=== PATIENT | male | born 1995 | race Caucasian/White ===

== ENCOUNTER 2017-08-06 19:12 | Emergency (ER) | payer MEDICAID ==
[~2017-08-06] VITALS: Ht 180.3 cm; Wt 68.5 kg
[~2017-08-06 19:12] MED LIST: DIPH-423 PO; GUAI600T45 PO; INSU100C4 SQ; LANTUS SQ; POLOS OP; VIG0.5OS OP
[2017-08-06] MEDS ORDERED: IBUP-1984 PO (20:04)
[2017-08-06 20:54] LABS: BASOPHILS % (AUTO) 0.3 % (0-1); EOSINOPHILS # (AUTO) 0.1 X10'3 (0-0.9); EOSINOPHILS % (AUTO) 1.9 % (0-6); HEMATOCRIT 46.1 % (42.0-52.0); HEMOGLOBIN 15.8 g/dl (14.0-17.9); LYMPHOCYTES # (AUTO) 1.8 X10'3 (1.1-4.8); LYMPHOCYTES % (AUTO) 30.8 % (21-51); MEAN CORPUSCULAR HEMOGLOBIN 30.8 PG (27.0-31.0); MEAN CORPUSCULAR HGB CONC 34.2 % (33.0-36.5); MEAN PLATELET VOLUME 10.1 FL (7.4-10.4); MONOCYTES # (AUTO) 0.4 X10'3 (0-0.9); MONOCYTES % (AUTO) 6.5 % (2-12); NEUTROPHILS # (AUTO) 3.5 X10'3 (1.8-7.7); NEUTROPHILS % (AUTO) 60.5 % (42-75); PLATELET COUNT 201 X10'3 (140-440); RED BLOOD COUNT 5.12 X10'6 (4.70-6.10); WHITE BLOOD COUNT 5.9 X10'3 (4.5-11.0)
[2017-08-06 21:03] LABS: ALANINE AMINOTRANSFERASE 40 U/L (12-78); ALBUMIN 4.7 G/DL (3.4-5.0); ALBUMIN/GLOBULIN RATIO 1.5 (1.1-1.5); ALKALINE PHOSPHATASE 421 IU/L (20-180); ANION GAP 10 (8-16); ASPARTATE AMINO TRANSFERASE 23 U/L (10-37); BILIRUBIN,TOTAL 0.8 MG/DL (0.1-1.0); BLOOD UREA NITROGEN 17 MG/DL (7-18); BUN/CREATININE RATIO 12.2 (5.4-32.0); CALCIUM 9.4 MG/DL (8.5-10.1); CHLORIDE 88 MMOL/L (99-107); CREATININE 1.39 MG/DL (0.60-1.10); POTASSIUM 4.6 MMOL/L (3.5-5.1); SODIUM 127 MMOL/L (135-145); TOTAL CARBON DIOXIDE 28.7 MMOL/L (24-32); TOTAL PROTEIN 7.9 G/DL (6.4-8.2); eGFR 66 ML/MIN
[2017-08-06 21:22] LABS: GLUCOSE 832 MG/DL (70-104)
[2017-08-06] MEDS ORDERED: insulin regular, human 10 units/0.1 ml syringe SQ ONE ×2 (21:30→22:25)
[2017-08-06] MEDS ORDERED: normal saline 1000ml 1,000 ML IV ONE ×3 (21:30→23:45)
[2017-08-06] MEDS ORDERED: morphine 4 MG/ML inj SYRINge IV ONE (21:55)
[2017-08-06 22:01] LABS: CLARITY,URINE CLEAR (Clear); COLOR,URINE STRAW (Yellow); GLUCOSE, URINE >=1000 mg/dl (Neg); KETONES,URINE NEGATIVE (Neg); LEUKOCYTE ESTERASE ,URINE NEGATIVE (Neg); NITRITES, URINE NEGATIVE (Neg); OCCULT BLOOD,URINE NEGATIVE (Neg); PROTEIN,URINE NEGATIVE (Neg); UROBILINOGEN,URINE 0.2 E.U/dL (0.2-1.0)
[2017-08-06 22:03] LABS: UA COLLECTION TYPE CLN CATCH MIDSTREAM
[2017-08-06 22:09] LABS: BACTERIA,URINE NONE SEEN /HPF (Neg); MUCUS STRANDS NONE SEEN /LPF (Neg); RBC,URINE NONE SEEN /HPF (0-2); SQUAMOUS EPITHELIAL CELL,UR FEW /LPF (FEW); WBC,URINE NONE SEEN /HPF (0-4)
[2017-08-06] MEDS ORDERED: HYDR-569 PO (23:43)
[2017-08-07 00:50] VITALS: BP 129/77
== END 2017-08-07 00:52 | disposition home or self-care (01) ==
LOC: ER 19:12
DX: S39.012A Strain of muscle, fascia and tendon of lower back, initial encounter (principal); E10.65 Type 1 diabetes mellitus with hyperglycemia; N17.9 Acute kidney failure, unspecified; M54.5 Low back pain; E87.0 Hyperosmolality and hypernatremia; Z88.0 Allergy status to penicillin; W18.39XA Other fall on same level, initial encounter; Y93.89 Activity, other specified; Y92.331 Roller skating rink as the place of occurrence of the external cause; Y99.8 Other external cause status
CPT/HCPCS: 36415; 71100; 72070; 72100; 80053; 81001; 82948; 85025; 96361; 96372; 96374; 99285; J1815; J2270; J7030

== ENCOUNTER 2017-08-14 22:21 | Emergency (ER) | payer MEDICAID ==
[~2017-08-14] VITALS: Ht 180.3 cm; Wt 68.0 kg
[~2017-08-14 22:21] MED LIST changes: -GUAI600T45 PO; +HYDR-569 PO; +IBUP-1984 PO; -POLOS OP; -VIG0.5OS OP
[2017-08-14 22:45] LABS: BASOPHILS % (AUTO) 0.4 % (0-1); EOSINOPHILS # (AUTO) 0.1 X10'3 (0-0.9); EOSINOPHILS % (AUTO) 1.9 % (0-6); HEMATOCRIT 42.6 % (42.0-52.0); HEMOGLOBIN 14.7 g/dl (14.0-17.9); LYMPHOCYTES # (AUTO) 3.1 X10'3 (1.1-4.8); MEAN CORPUSCULAR HEMOGLOBIN 30.6 PG (27.0-31.0); MEAN CORPUSCULAR HGB CONC 34.6 % (33.0-36.5); MEAN CORPUSCULAR VOLUME 88.7 FL (78-98); MONOCYTES # (AUTO) 0.6 X10'3 (0-0.9); MONOCYTES % (AUTO) 8.2 % (2-12); NEUTROPHILS # (AUTO) 3.7 X10'3 (1.8-7.7); NEUTROPHILS % (AUTO) 48.5 % (42-75); PLATELET COUNT 229 X10'3 (140-440); RED CELL DISTRIBUTION WIDTH 13.2 % (11.5-14.5); WHITE BLOOD COUNT 7.6 X10'3 (4.5-11.0)
[2017-08-14] MEDS ORDERED: acetaminophen 325mg tablet PO ONE (23:05)
[2017-08-14] MEDS ORDERED: ketorolac tromethamine 15mg/ml inj. IV ONE (23:05)
[2017-08-14] MEDS ORDERED: normal saline 1000ML IV soln IVB ONE (23:05)
[2017-08-14] MEDS ORDERED: INSU100I31 (23:07)
[2017-08-14] MEDS ORDERED: INSU100I31 SUBCUT (23:07)
[2017-08-14 23:10] LABS: ALANINE AMINOTRANSFERASE 38 U/L (12-78); ALBUMIN 4.2 G/DL (3.4-5.0); ALBUMIN/GLOBULIN RATIO 1.3 (1.1-1.5); ALKALINE PHOSPHATASE 308 IU/L (20-180); ANION GAP 16 (8-16); ASPARTATE AMINO TRANSFERASE 23 U/L (10-37); BILIRUBIN,TOTAL 0.4 MG/DL (0.1-1.0); BLOOD UREA NITROGEN 17 MG/DL (7-18); BUN/CREATININE RATIO 10.9 (5.4-32.0); CALCIUM 9.3 MG/DL (8.5-10.1); CHLORIDE 96 MMOL/L (99-107); CKMB RELATIVE INDEX 0.4 RATIO (0-2.5); CREATINE KINASE 300 U/L (39-308); CREATININE 1.56 MG/DL (0.60-1.10); GLUCOSE 391 MG/DL (70-104); POTASSIUM 3.4 MMOL/L (3.5-5.1); SODIUM 136 MMOL/L (135-145); TOTAL CARBON DIOXIDE 24.1 MMOL/L (24-32); TOTAL PROTEIN 7.4 G/DL (6.4-8.2); eGFR 58 ML/MIN
[2017-08-15 00:30] VITALS: BP 139/94
== END 2017-08-15 00:31 | disposition home or self-care (01) ==
LOC: ER 22:22
DX: E10.65 Type 1 diabetes mellitus with hyperglycemia (principal); R25.2 Cramp and spasm; Z79.4 Long term (current) use of insulin; Z88.0 Allergy status to penicillin; Z88.8 Allergy status to other drugs, medicaments and biological substances; Z79.899 Other long term (current) drug therapy
CPT/HCPCS: 36415; 80053; 82550; 82553; 82948; 85025; 96360; 99284; J7030

== ENCOUNTER 2019-07-18 18:58 | Emergency (ER) | payer MEDICAID ==
[~2019-07-18] VITALS: Ht 180.3 cm; Wt 160.0 kg
[~2019-07-18 18:58] MED LIST changes: +HYDR-4383 PO; -HYDR-569 PO; +INSU100I31; +INSU100I31 SUBCUT; -LANTUS SQ
[2019-07-18] MEDS ORDERED: morphine 4 MG/ML inj SYRINge IV PRN (19:10)
[2019-07-18] MEDS ORDERED: ondansetron/PF 4mg/2ml inj IV ONE (19:10)
[2019-07-18] MEDS ORDERED: normal saline 1000ML IV soln IVB ONE (19:10)
[2019-07-18 19:33] LABS: BASOPHILS % (AUTO) 0.1 % (0-1); EOSINOPHILS % (AUTO) 0.4 % (0-6); HEMATOCRIT 50.6 % (42.0-52.0); HEMOGLOBIN 17.8 g/dl (14.0-17.9); LYMPHOCYTES # (AUTO) 0.3 X10'3 (1.1-4.8); LYMPHOCYTES % (AUTO) 4.5 % (21-51); MEAN CORPUSCULAR HEMOGLOBIN 30.4 PG (27.0-31.0); MEAN CORPUSCULAR HGB CONC 35.1 g/dL (33.0-36.5); MEAN CORPUSCULAR VOLUME 86.5 FL (78-98); MEAN PLATELET VOLUME 8.9 FL (7.4-10.4); MONOCYTES # (AUTO) 0.4 X10'3 (0-0.9); MONOCYTES % (AUTO) 5.4 % (2-12); NEUTROPHILS # (AUTO) 6.9 X10'3 (1.8-7.7); NEUTROPHILS % (AUTO) 89.6 % (42-75); PLATELET COUNT 232 X10'3 (140-440); RED BLOOD COUNT 5.85 X10'6 (4.70-6.10); RED CELL DISTRIBUTION WIDTH 13.8 % (11.5-14.5); WHITE BLOOD COUNT 7.7 X10'3 (4.5-11.0)
[2019-07-18 19:43] LABS: ALANINE AMINOTRANSFERASE 28 U/L (12-78); ALBUMIN 4.4 G/DL (3.4-5.0); ALBUMIN/GLOBULIN RATIO 1.3 (1.1-1.5); ALKALINE PHOSPHATASE 177 IU/L (46-116); ANION GAP 10 (8-16); ASPARTATE AMINO TRANSFERASE 20 U/L (10-37); BLOOD UREA NITROGEN 20 MG/DL (7-18); BUN/CREATININE RATIO 16.8 (5.4-32.0); CHLORIDE 99 MMOL/L (99-107); CREATININE 1.19 MG/DL (0.60-1.10); GLUCOSE 363 MG/DL (70-104); LIPASE < 50 U/L (73-393); MAGNESIUM 1.2 MG/DL (1.5-2.4); POTASSIUM 4.6 MMOL/L (3.5-5.1); SODIUM 138 MMOL/L (135-145); TOTAL CARBON DIOXIDE 29.4 MMOL/L (24-32); TOTAL PROTEIN 7.8 G/DL (6.4-8.2); eGFR 77 ML/MIN
[2019-07-18] MEDS ORDERED: magnesium 2GM in 50ml NS 50 ML IV ONE (19:55)
[2019-07-18] MEDS ORDERED: insulin regular, human 10 units/0.1 ml syringe IV ONE (20:10)
[2019-07-18] MEDS ORDERED: ONDA4TAB6 PO (20:30)
[2019-07-18] MEDS ORDERED: insulin regular, human U-100 3ml vial - multi-dose IV ONE (20:50)
--- NOTE | 2019-07-18 22:35 | NUR ---
DR DIANE AWARE OF BLOOD SUGAR 262 POST TREATMENT, OK TO DC HOME, PT AMB WITH STEADY GAIT TO [facility]
[2019-07-18 22:38] VITALS: BP 125/69
== END 2019-07-18 22:39 | disposition home or self-care (01) ==
LOC: ER 18:58
DX: R10.11 Right upper quadrant pain (principal); R10.13 Epigastric pain; R11.2 Nausea with vomiting, unspecified; E10.9 Type 1 diabetes mellitus without complications; Z88.0 Allergy status to penicillin; Z88.8 Allergy status to other drugs, medicaments and biological substances; Z79.4 Long term (current) use of insulin; Z79.899 Other long term (current) drug therapy
CPT/HCPCS: 36415; 76700; 80053; 82948; 83690; 83735; 85025; 96361; 96365; 96375; 99284; J2270; J2405; J3475; J7030; 96374; J1815

== ENCOUNTER 2020-07-10 01:09 | Inpatient (IN) | payer MEDICAID ==
[~2020-07-10] VITALS: Ht 180.3 cm; Wt 68.1 kg
[~2020-07-10 01:09] MED LIST changes: +ONDA4TAB6 PO
[2020-07-10] MEDS ORDERED: normal saline 1000ML IV soln IVB ONE (01:30)
[2020-07-10] MEDS ORDERED: ondansetron/PF 4mg/2ml inj IV ONE (01:30)
[2020-07-10] MEDS ORDERED: insulin regular, human 10 units/0.1 ml syringe SQ ONE (01:30)
[2020-07-10 01:49] LABS: EOSINOPHILS % (AUTO) 0.1 % (0-6)
[2020-07-10 01:50] LABS: BASOPHILS # (AUTO) 0.1 X10'3 (0-0.2); BASOPHILS % (AUTO) 0.6 % (0-1); HEMATOCRIT 46.2 % (42.0-52.0); HEMOGLOBIN 15.3 g/dl (14.0-17.9); LYMPHOCYTES # (AUTO) 1.6 X10'3 (1.1-4.8); LYMPHOCYTES % (AUTO) 12.6 % (21-51); MEAN CORPUSCULAR HEMOGLOBIN 29.9 PG (27.0-31.0); MEAN CORPUSCULAR HGB CONC 33.1 g/dL (33.0-36.5); MEAN CORPUSCULAR VOLUME 90.2 FL (78-98); MONOCYTES # (AUTO) 0.8 X10'3 (0-0.9); MONOCYTES % (AUTO) 6.7 % (2-12); NEUTROPHILS # (AUTO) 10.2 X10'3 (1.8-7.7); PLATELET COUNT 479 X10'3 (140-440); RED BLOOD COUNT 5.12 X10'6 (4.70-6.10); RED CELL DISTRIBUTION WIDTH 13.5 % (11.5-14.5); WHITE BLOOD COUNT 12.7 X10'3 (4.5-11.0)
[2020-07-10 01:58] LABS: PARTIAL THROMBOPLASTIN TIME 26 SECONDS (22-32)
[2020-07-10 02:01] LABS: ALANINE AMINOTRANSFERASE 31 U/L (12-78); ALBUMIN 3.9 G/DL (3.4-5.0); ALBUMIN/GLOBULIN RATIO 0.8 (1.1-1.5); ALKALINE PHOSPHATASE 253 IU/L (46-116); ANION GAP 28 (8-16); ASPARTATE AMINO TRANSFERASE 23 U/L (10-37); BILIRUBIN,TOTAL 0.7 MG/DL (0.1-1.0); BLOOD UREA NITROGEN 16 MG/DL (7-18); BUN/CREATININE RATIO 10.7 (5.4-32.0); C-REACTIVE PROTEIN 6.13 MG/DL (0.0-0.5); CALCIUM 9.6 MG/DL (8.5-10.1); CHLORIDE 95 MMOL/L (99-107); GLUCOSE 442 MG/DL (70-104); POTASSIUM 5.5 MMOL/L (3.5-5.1); SODIUM 132 MMOL/L (135-145); TOTAL PROTEIN 8.7 G/DL (6.4-8.2); eGFR 59 ML/MIN
[2020-07-10 02:09] LABS: TOTAL CARBON DIOXIDE 9.4 MMOL/L (24-32)
[2020-07-10 02:17] LABS: CLARITY,URINE CLEAR (Clear); COLOR,URINE YELLOW (Yellow); GLUCOSE, URINE 500 mg/dl (Neg); KETONES,URINE >=80 mg/dl (Neg); LEUKOCYTE ESTERASE ,URINE NEGATIVE (Neg); NITRITES, URINE NEGATIVE (Neg); OCCULT BLOOD,URINE TRACE-INTACT (Neg); PH,URINE 5.5 (4.8-8.0); PROTEIN,URINE 30 mg/dl (Neg); UROBILINOGEN,URINE 0.2 E.U/dL (0.2-1.0)
[2020-07-10 02:28] LABS: UA COLLECTION TYPE URINAL
[2020-07-10 02:30] LABS: BACTERIA,URINE NONE SEEN /HPF (Neg); HYALINE CASTS 0-3 /LPF (NEGATIVE); RBC,URINE NONE SEEN /HPF (0-2); SQUAMOUS EPITHELIAL CELL,UR NONE SEEN /LPF (FEW); WBC,URINE NONE SEEN /HPF (0-4)
[2020-07-10] MEDS ORDERED: sodium bicarbonate (8.4%) inj. 100 MEQ in dextrose 5% water 500ml 500 ML IV PRN (03:30)
[2020-07-10] MEDS ORDERED: potassium Cl 40MEQ/1/2NS 520ml 520 ML IV PRN ×4 (03:30)
[2020-07-10] MEDS ORDERED: potassium CL 20mEq in D5-1/2NS 1,000 ML IV PRN (03:30)
[2020-07-10] MEDS ORDERED: acetaminophen 325mg tablet PO PRN (03:30)
[2020-07-10] MEDS ORDERED: magnesium 4gm in 100ml NS 100 ML IV PRN (03:30)
[2020-07-10] MEDS ORDERED: sodium phosphate inj. 15 MMOL in dextrose 5%-water 250 ML IV PRN (03:30)
[2020-07-10] MEDS ORDERED: magnesium 2GM in 50ml NS 50 ML IV PRN (03:30)
[2020-07-10] MEDS ORDERED: potassium Cl 20 mEq SR tablet PO PRN ×4 (03:30)
[2020-07-10] MEDS ORDERED: Neutra Phos packet PO PRN (03:30)
[2020-07-10] MEDS ORDERED: sodium bicarbonate (8.4%) inj. 50 MEQ in dextrose 5% water 500ml 250 ML IV PRN (03:30)
[2020-07-10] MEDS ORDERED: sodium phosphate inj. 30 MMOL in dextrose 5%-water 250 ML IV PRN (03:30)
[2020-07-10] MEDS ORDERED: Insulin Reg/NS 100units/100mL 100 ML IV SCH (03:30)
[2020-07-10] MEDS ORDERED: normal saline 1000ml 1,000 ML IV SCH (03:30)
[2020-07-10] MEDS ORDERED: magnesium hydroxide 30ml (MOM) UD suspension PO PRN (03:30)
[2020-07-10] MEDS ORDERED: insulin regular, human U-100 3ml vial - multi-dose IV PRN (03:30)
[2020-07-10] MEDS ORDERED: ondansetron/PF 4mg/2ml inj IV PRN (03:30)
[2020-07-10] MEDS ORDERED: mag hydrox/Alum hydrox/simeth 30ml oral suspension PO PRN (03:30)
[2020-07-10] MEDS: morphine 2 MG/ML inj. syringe IV PRN ×2 (03:36→16:17)
[2020-07-10 03:56] LABS: ABG BASE EXCESS -16.9 mmol/L (-2.0-2.0); ABG HCO3 9.6 mmol/L (22.0-26.0); ABG OXYGEN SATURATION 97.7 % (94-97); ABG PCO2 (T) 25.6 mmHg (35.0-48.0); ABG PO2 (T) 103.7 mmHg (75.0-100.0); ALLEN'S TEST POSITIVE; FCOHb 0.6 % (0.0-3.9); FMetHb 0.4 % (0.0-1.5); FO2Hb 96.7 % (94-97); PATIENT TEMPERATURE 36.6; TOTAL HEMOGLOBIN 15.5 G/dl (14.0-18.0)
[2020-07-10] MEDS: normal saline 1000ml 1,000 ML IV SCH ×4 (04:00→18:58)
--- NOTE | 2020-07-10 04:14 | NUR ---
Initial BS 409, 2 L NS and 10 U Insulin given. At recheck pt BS 278. One more L NS given, will reassess BS in 30 min to see if next L NS is necessary.
--- NOTE | 2020-07-10 04:27 | NUR ---
DR. MURRELL ADVISED TO START PT ON BICARB EVEN WITH PH OF 7.185.
[2020-07-10 04:38] LABS: ALBUMIN 3.4 G/DL (3.4-5.0); ANION GAP 22 (8-16); BLOOD UREA NITROGEN 13 MG/DL (7-18); BUN/CREATININE RATIO 9.3 (5.4-32.0); CALCIUM 8.5 MG/DL (8.5-10.1); CHLORIDE 103 MMOL/L (99-107); GLUCOSE 256 MG/DL (70-104); PHOSPHORUS 3.1 MG/DL (2.3-4.5); POTASSIUM 5.1 MMOL/L (3.5-5.1); SODIUM 137 MMOL/L (135-145); eGFR 63 ML/MIN
[2020-07-10 04:49] LABS: TOTAL CARBON DIOXIDE 12.1 MMOL/L (24-32)
--- NOTE | 2020-07-10 05:17 | NUR ---
Patient in room ED 1. I have received report from GABINO Baxter and had the opportunity to ask questions and assume patient care.
[2020-07-10 05:39] VITALS: BP 129/86
--- NOTE | 2020-07-10 06:20 | NUR ---
Patient in room PCU 3023. I have received report from Nga LLOYD and had the opportunity to ask questions and assume patient care.
--- NOTE | 2020-07-10 06:25 | NUR ---
Problems reprioritized. Patient report given, questions answered & plan of care reviewed with GABINO Reed.
--- NOTE | 2020-07-10 06:42 | NUR ---
Patient in room PCU 3023. I have received report from Nga LLOYD and had the opportunity to ask questions and assume patient care with Derek LLOYD.
[2020-07-10 07:04] VITALS: BP 129/86
[2020-07-10] MEDS: K and/or MAG REPLACEMENT MC SCH ×4 (08:18→19:33)
[2020-07-10] MEDS ORDERED: dextrose 5%-1/2 normal saline 1,000 ML IV SCH (08:25)
[2020-07-10 09:21] LABS: PHOSPHORUS 2.9 MG/DL (2.3-4.5)
[2020-07-10 09:39] LABS: ALBUMIN 3.3 G/DL (3.4-5.0); ANION GAP 14 (8-16); BLOOD UREA NITROGEN 10 MG/DL (7-18); BUN/CREATININE RATIO 8.2 (5.4-32.0); CALCIUM 8.9 MG/DL (8.5-10.1); CHLORIDE 104 MMOL/L (99-107); CREATININE 1.22 MG/DL (0.60-1.10); GLUCOSE 162 MG/DL (70-104); POTASSIUM 4.2 MMOL/L (3.5-5.1); SODIUM 138 MMOL/L (135-145); TOTAL CARBON DIOXIDE 20.2 MMOL/L (24-32); eGFR 74 ML/MIN
[2020-07-10] MEDS ORDERED: BUPR-94 PO (09:57)
[2020-07-10] MEDS ORDERED: dextrose 50%-water 50ml dispensing syringe IV PRN ×2 (10:35)
[2020-07-10] MEDS ORDERED: MESSAGE TO PHARMACY PO ONE (10:35)
[2020-07-10] MEDS ORDERED: glucagon, human recombinant 1mg kit SUBCUT PRN (10:35)
[2020-07-10] MEDS ORDERED: dextrose ORAL solution 15 GM/59 ML bottle PO PRN ×2 (10:35)
--- NOTE | 2020-07-10 10:45 | NUR ---
RT Paged Re. Deborah Velasquez [phone]. Needs ABG please. Danielle LLOYD, PCU [id number]
[2020-07-10 11:00] VITALS: BP 112/71
[2020-07-10 11:17] LABS: ABG BASE EXCESS -7.7 mmol/L (-2.0-2.0); ABG HCO3 16.4 mmol/L (22.0-26.0); ABG OXYGEN SATURATION 97.6 % (94-97); ABG PCO2 (T) 29.4 mmHg (35.0-48.0); ABG PO2 (T) 95.4 mmHg (75.0-100.0); ALLEN'S TEST Yes; FCOHb 0.5 % (0.0-3.9); FMetHb 0.1 % (0.0-1.5); PATIENT TEMPERATURE 36.7; TOTAL HEMOGLOBIN 14.6 G/dl (14.0-18.0)
[2020-07-10 11:38] LABS: URINE AMPHETAMINE SCREEN NEGATIVE (Neg); URINE BARBITUATE SCREEN NEGATIVE (Neg); URINE BENZODIAZEPINES SCREEN NEGATIVE (Neg); URINE CANNABINOID SCREEN NEGATIVE (Neg); URINE COCAINE SCREEN NEGATIVE (Neg); URINE METHADONE SCREEN NEGATIVE (Neg); URINE OPIATE SCREEN POSITIVE (Neg); URINE PHENCYCLIDINE SCREEN NEGATIVE (Neg)
[2020-07-10 12:17] LABS: PHOSPHORUS 2.1 MG/DL (2.3-4.5)
[2020-07-10 12:37] LABS: ALBUMIN 3.2 G/DL (3.4-5.0); ANION GAP 13 (8-16); BLOOD UREA NITROGEN 9 MG/DL (7-18); BUN/CREATININE RATIO 7.7 (5.4-32.0); CALCIUM 8.8 MG/DL (8.5-10.1); CHLORIDE 104 MMOL/L (99-107); CREATININE 1.17 MG/DL (0.60-1.10); GLUCOSE 103 MG/DL (70-104); POTASSIUM 3.6 MMOL/L (3.5-5.1); SODIUM 139 MMOL/L (135-145); TOTAL CARBON DIOXIDE 21.6 MMOL/L (24-32); eGFR 78 ML/MIN
[2020-07-10] MEDS: insulin Lispro (HumaLOG) vial - multi-dose SQ SCH ×2 (13:19→18:56)
[2020-07-10] MEDS: levoFLOXACIN-Levaquin 750MG/D5 150 ML IV SCH (14:21)
--- NOTE | 2020-07-10 14:40 | NUR ---
Paged PAGER ID: [phone] MESSAGE: Re: Deborah Velasquez rm [id number] Patient c/o headache, no relief with 650mg Tylenol, may we have order for something else? Marcell? Danielle LLOYD [id number]
[2020-07-10] MEDS ORDERED: HYDROcodone/acetaminophen 5mg/325mg tablet PO PRN (14:45)
[2020-07-10 15:00] VITALS: BP 105/63
[2020-07-10] MEDS ORDERED: INSU100I52 SQ (16:37)
[2020-07-10 17:57] LABS: ALBUMIN 2.9 G/DL (3.4-5.0); ANION GAP 13 (8-16); BLOOD UREA NITROGEN 8 MG/DL (7-18); BUN/CREATININE RATIO 7.6 (5.4-32.0); CALCIUM 8.6 MG/DL (8.5-10.1); CHLORIDE 103 MMOL/L (99-107); CREATININE 1.05 MG/DL (0.60-1.10); GLUCOSE 213 MG/DL (70-104); POTASSIUM 3.9 MMOL/L (3.5-5.1); SODIUM 138 MMOL/L (135-145); eGFR 88 ML/MIN
--- NOTE | 2020-07-10 18:18 | NUR ---
Problems reprioritized. Patient report given, questions answered & plan of care reviewed with Jordana LLOYD.
--- NOTE | 2020-07-10 18:19 | NUR ---
Problems reprioritized. Patient report given, questions answered & plan of care reviewed with Jordana LLOYD.
[2020-07-10] MEDS: enoxaparin 40mg/0.4ml syringe SQ SCH (19:29)
[2020-07-10] MEDS: buPROPion SR 150mg tablet PO SCH (20:13)
[2020-07-10] MEDS: insulin glargine (Lantus) pen - multi-dose SQ SCH (20:44)
[2020-07-10 22:00] VITALS: BP 111/70
--- NOTE | 2020-07-10 23:30 | NUR ---
Paged Dr. Garcia. PAGER ID: [phone] MESSAGE: This is GABINO Silveira from [facility] x [phone]. Pt in 3023C, Deborah Velasquez 24 M DX: PATEL has nasal congestion and cough. Can we have an order for his cough & nasal congestion? Allergy : PCN & Ketorolac. Thanks!
[2020-07-11] MEDS ORDERED: diphenhydrAMINE 25mg capsule PO PRN (00:25)
[2020-07-11 02:00] VITALS: BP 122/71
[2020-07-11] MEDS: normal saline 1000ml 1,000 ML IV SCH ×3 (02:43→17:02)
--- NOTE | 2020-07-11 06:04 | NUR ---
Patient in room PCU 3023. I have received report from Jordana LLOYD and had the opportunity to ask questions and assume patient care with Derek LLOYD.
--- NOTE | 2020-07-11 06:04 | NUR ---
Problems reprioritized. Patient report given, questions answered & plan of care reviewed with Derek/GABINO Santos.
--- NOTE | 2020-07-11 06:05 | NUR ---
Patient in room PCU 3023. I have received report from Jordana LLOYD and had the opportunity to ask questions and assume patient care.
[2020-07-11 06:19] LABS: BASOPHILS # (AUTO) 0.1 X10'3 (0-0.2); EOSINOPHILS # (AUTO) 0.1 X10'3 (0-0.9); EOSINOPHILS % (AUTO) 2.1 % (0-6); HEMATOCRIT 36.2 % (42.0-52.0); HEMOGLOBIN 12.3 g/dl (14.0-17.9); LYMPHOCYTES # (AUTO) 2.1 X10'3 (1.1-4.8); MEAN CORPUSCULAR HEMOGLOBIN 29.6 PG (27.0-31.0); MEAN CORPUSCULAR HGB CONC 33.9 g/dL (33.0-36.5); MEAN CORPUSCULAR VOLUME 87.2 FL (78-98); MEAN PLATELET VOLUME 8.4 FL (7.4-10.4); MONOCYTES # (AUTO) 0.6 X10'3 (0-0.9); MONOCYTES % (AUTO) 8.7 % (2-12); NEUTROPHILS # (AUTO) 3.8 X10'3 (1.8-7.7); NEUTROPHILS % (AUTO) 57.2 % (42-75); PLATELET COUNT 316 X10'3 (140-440); RED BLOOD COUNT 4.15 X10'6 (4.70-6.10); RED CELL DISTRIBUTION WIDTH 13.8 % (11.5-14.5); WHITE BLOOD COUNT 6.7 X10'3 (4.5-11.0)
[2020-07-11 06:44] LABS: ALBUMIN 2.7 G/DL (3.4-5.0); ANION GAP 7 (8-16); BLOOD UREA NITROGEN 9 MG/DL (7-18); BUN/CREATININE RATIO 9.4 (5.4-32.0); CALCIUM 8.5 MG/DL (8.5-10.1); CHLORIDE 103 MMOL/L (99-107); CREATININE 0.96 MG/DL (0.60-1.10); GLUCOSE 298 MG/DL (70-104); MAGNESIUM 1.9 MG/DL (1.5-2.4); PHOSPHORUS 2.5 MG/DL (2.3-4.5); POTASSIUM 3.6 MMOL/L (3.5-5.1); SODIUM 138 MMOL/L (135-145); TOTAL CARBON DIOXIDE 27.9 MMOL/L (24-32); eGFR > 90 ML/MIN
[2020-07-11] MEDS: insulin Lispro (HumaLOG) vial - multi-dose SQ SCH ×4 (06:57→19:06)
[2020-07-11 07:00] VITALS: BP 132/83
[2020-07-11] MEDS: levoFLOXACIN-Levaquin 750MG/D5 150 ML IV SCH (07:50)
[2020-07-11] MEDS: K and/or MAG REPLACEMENT MC SCH ×4 (07:59→20:00)
[2020-07-11 11:00] VITALS: BP_SYST 128; BP_SYST 130; BP_DIAS 83; BP_DIAS 84
[2020-07-11 15:00] VITALS: BP 121/73
[2020-07-11 17:50] LABS: ANION GAP 7 (8-16); BLOOD UREA NITROGEN 9 MG/DL (7-18); BUN/CREATININE RATIO 10.5 (5.4-32.0); CALCIUM 8.6 MG/DL (8.5-10.1); CHLORIDE 105 MMOL/L (99-107); CREATININE 0.86 MG/DL (0.60-1.10); GLUCOSE 177 MG/DL (70-104); POTASSIUM 3.6 MMOL/L (3.5-5.1); SODIUM 143 MMOL/L (135-145); TOTAL CARBON DIOXIDE 31.1 MMOL/L (24-32); eGFR > 90 ML/MIN
--- NOTE | 2020-07-11 18:00 | NUR ---
Orientee documentation: I have reviewed and agree with all interventions, assessments performed and documented by Danielle Velez RN.
--- NOTE | 2020-07-11 18:10 | NUR ---
Problems reprioritized. Patient report given, questions answered & plan of care reviewed with Jordana LLOYD.
--- NOTE | 2020-07-11 18:11 | NUR ---
Problems reprioritized. Patient report given, questions answered & plan of care reviewed with Jordana LLOYD.
[2020-07-11 18:38] VITALS: BP 129/83
[2020-07-11] MEDS: lactobacillus rhamnosus 10,000 MMU CELLS/CAPSULE PO SCH (19:04)
[2020-07-11] MEDS: enoxaparin 40mg/0.4ml syringe SQ SCH (19:04)
[2020-07-11] MEDS: buPROPion SR 150mg tablet PO SCH (20:28)
[2020-07-11] MEDS: insulin glargine (Lantus) pen - multi-dose SQ SCH (20:32)
[2020-07-11 22:00] VITALS: BP 135/81
[2020-07-12] MEDS: normal saline 1000ml 1,000 ML IV SCH (00:40)
[2020-07-12 02:00] VITALS: BP 139/88
--- NOTE | 2020-07-12 06:11 | NUR ---
Patient in room PCU 3023. I have received report from Jordana LLOYD and had the opportunity to ask questions and assume patient care with Derek LLOYD.
--- NOTE | 2020-07-12 06:13 | NUR ---
Problems reprioritized. Patient report given, questions answered & plan of care reviewed with GABINO Reed.
--- NOTE | 2020-07-12 06:15 | NUR ---
Patient in room PCU 3023. I have received report from Jordana LLOYD and had the opportunity to ask questions and assume patient care.
[2020-07-12 06:22] LABS: BASOPHILS % (AUTO) 0.4 % (0-1); EOSINOPHILS # (AUTO) 0.2 X10'3 (0-0.9); EOSINOPHILS % (AUTO) 3.6 % (0-6); HEMATOCRIT 36.2 % (42.0-52.0); HEMOGLOBIN 12.1 g/dl (14.0-17.9); LYMPHOCYTES # (AUTO) 2.5 X10'3 (1.1-4.8); LYMPHOCYTES % (AUTO) 43.2 % (21-51); MEAN CORPUSCULAR HGB CONC 33.5 g/dL (33.0-36.5); MEAN CORPUSCULAR VOLUME 86.7 FL (78-98); MEAN PLATELET VOLUME 8.6 FL (7.4-10.4); MONOCYTES # (AUTO) 0.5 X10'3 (0-0.9); MONOCYTES % (AUTO) 8.8 % (2-12); NEUTROPHILS # (AUTO) 2.6 X10'3 (1.8-7.7); PLATELET COUNT 300 X10'3 (140-440); RED BLOOD COUNT 4.17 X10'6 (4.70-6.10); RED CELL DISTRIBUTION WIDTH 13.4 % (11.5-14.5); WHITE BLOOD COUNT 5.9 X10'3 (4.5-11.0)
[2020-07-12 06:47] LABS: ALBUMIN 2.7 G/DL (3.4-5.0); ANION GAP 8 (8-16); BLOOD UREA NITROGEN 9 MG/DL (7-18); BUN/CREATININE RATIO 13.8 (5.4-32.0); CALCIUM 8.5 MG/DL (8.5-10.1); CHLORIDE 104 MMOL/L (99-107); CREATININE 0.65 MG/DL (0.60-1.10); GLUCOSE 258 MG/DL (70-104); MAGNESIUM 1.6 MG/DL (1.5-2.4); POTASSIUM 3.1 MMOL/L (3.5-5.1); SODIUM 141 MMOL/L (135-145); TOTAL CARBON DIOXIDE 28.8 MMOL/L (24-32); eGFR > 90 ML/MIN
[2020-07-12 07:00] VITALS: BP 112/69
[2020-07-12] MEDS: K and/or MAG REPLACEMENT MC SCH ×2 (08:00→08:14)
[2020-07-12] MEDS: levoFLOXACIN-Levaquin 750MG/D5 150 ML IV SCH (08:17)
[2020-07-12] MEDS: lactobacillus rhamnosus 10,000 MMU CELLS/CAPSULE PO SCH (08:17)
[2020-07-12] MEDS: insulin Lispro (HumaLOG) vial - multi-dose SQ SCH ×2 (08:28→13:29)
[2020-07-12] MEDS ORDERED: POTA20TA19 PO (10:58)
[2020-07-12] MEDS ORDERED: LACT1CAP26 PO (10:58)
[2020-07-12] MEDS ORDERED: LEVO750T46 PO (10:58)
[2020-07-12 11:00] VITALS: BP 133/89
--- NOTE | 2020-07-12 12:11 | NUR ---
Dr. Valiente at bedside. approved potassium replacement, give 40 mEq Klor Con for potassium 3.1 prior to discharge. Doctor aware of BGL 48 and glucose 15g given. requested patient eat lunch and have blood glucose stabilized prior to discharge.
--- NOTE | 2020-07-12 12:30 | NUR ---
orientee documentation: I have reviewed and agree with all interventions, assessments performed and documented by Danielle Gary RN.
--- NOTE | 2020-07-12 14:15 | NUR ---
Patient Discharged Patient is stable for discharge per doctor's orders. Blood sugar at discharge was 158. All instructions were reviewed with patient and all questions answered. Patient will make own appointment for follow-up at [facility]. Patient medications electronically sent to [facility] [address]. Peripheral IV removed and telemetry discontinued, cannula intact. Belongings collected and sent with patient, Patient escorted to lobby and into private vehicle with grandmother.
[2020-07-13] MEDS ORDERED: levoFLOXACIN 750MG TABLET PO SCH (11:00)
== END 2020-07-12 14:40 | disposition home or self-care (01) | DRG 420 ==
LOC: ER 01:10 → ED HOLD 03:28 → PCU 3S 05:35
PROVIDERS: ADMIT Family Medicine; ATTEND Family Medicine
DX: E10.10 Type 1 diabetes mellitus with ketoacidosis without coma (principal); E87.5 Hyperkalemia; J18.9 Pneumonia, unspecified organism; R00.0 Tachycardia, unspecified; F32.9 Major depressive disorder, single episode, unspecified; N17.9 Acute kidney failure, unspecified; Z20.822 Contact with and (suspected) exposure to COVID-19; Z80.8 Family history of malignant neoplasm of other organs or systems; Z82.49 Family history of ischemic heart disease and other diseases of the circulatory system; Z83.3 Family history of diabetes mellitus; Z88.8 Allergy status to other drugs, medicaments and biological substances; Z88.0 Allergy status to penicillin; Z79.899 Other long term (current) drug therapy
CPT/HCPCS: 36415; 36600; 71045; 80048; 80053; 80305; 81001; 82803; 82948; 83036; 83735; 84100; 84145; 85018; 85025; 85379; 85610; 85730; 86140; 87081; 87502; 87503; 87635; 96361; 96372; 96374; 97116; 97161; 97530; 99285; C9803; G0378; J1650; J1815; J1956; J2270; J2405; J7030; Q0163

== ENCOUNTER 2021-07-17 20:48 | Emergency (ER) | payer MEDICAID ==
[~2021-07-17] VITALS: Ht 182.9 cm; Wt 77.5 kg
[~2021-07-17 20:48] MED LIST changes: +BUPR-94 PO; -DIPH-423 PO; -HYDR-4383 PO; -IBUP-1984 PO; -INSU100C4 SQ; -INSU100I31; +INSU100I52 SQ; +LACT1CAP26 PO; -ONDA4TAB6 PO
[2021-07-17 21:37] LABS: BASOPHILS % (AUTO) 0.6 % (0-1); EOSINOPHILS # (AUTO) 0.1 X10'3 (0-0.9); EOSINOPHILS % (AUTO) 1.9 % (0-6); HEMATOCRIT 46.7 % (42.0-52.0); HEMOGLOBIN 15.6 g/dl (14.0-17.9); MEAN CORPUSCULAR HEMOGLOBIN 27.9 PG (27.0-31.0); MEAN CORPUSCULAR HGB CONC 33.5 g/dL (33.0-36.5); MEAN CORPUSCULAR VOLUME 83.4 FL (78-98); MEAN PLATELET VOLUME 9.1 FL (7.4-10.4); MONOCYTES # (AUTO) 0.6 X10'3 (0-0.9); MONOCYTES % (AUTO) 8.2 % (2-12); NEUTROPHILS # (AUTO) 4.1 X10'3 (1.8-7.7); NEUTROPHILS % (AUTO) 60.3 % (42-75); PLATELET COUNT 250 X10'3 (140-440); RED BLOOD COUNT 5.59 X10'6 (4.70-6.10); RED CELL DISTRIBUTION WIDTH 13.9 % (11.5-14.5); WHITE BLOOD COUNT 6.8 X10'3 (4.5-11.0)
[2021-07-17 21:56] LABS: ALANINE AMINOTRANSFERASE 11 U/L (12-78); ALBUMIN 4.5 G/DL (3.4-5.0); ALBUMIN/GLOBULIN RATIO 1.3 (1.1-1.5); ALKALINE PHOSPHATASE 118 IU/L (46-116); ANION GAP 12 (8-16); ASPARTATE AMINO TRANSFERASE 12 U/L (10-37); BILIRUBIN,TOTAL 0.9 MG/DL (0.1-1.0); BLOOD UREA NITROGEN 19 MG/DL (7-18); BUN/CREATININE RATIO 19.8 (5.4-32.0); CALCIUM 9.5 MG/DL (8.5-10.1); CHLORIDE 102 MMOL/L (99-107); CREATININE 0.96 MG/DL (0.60-1.10); GLUCOSE 101 MG/DL (70-104); POTASSIUM 3.8 MMOL/L (3.5-5.1); SODIUM 143 MMOL/L (135-145); TOTAL CARBON DIOXIDE 29.2 MMOL/L (24-32); eGFR > 90 ML/MIN
[2021-07-17 22:00] LABS: LIPASE < 50 U/L (73-393)
[2021-07-17 22:33] LABS: CLARITY,URINE CLEAR (Clear); COLOR,URINE YELLOW (Yellow); GLUCOSE, URINE NEGATIVE (Neg); KETONES,URINE 15 mg/dl (Neg); LEUKOCYTE ESTERASE ,URINE NEGATIVE (Neg); NITRITES, URINE NEGATIVE (Neg); OCCULT BLOOD,URINE NEGATIVE (Neg); PH,URINE 6.5 (4.8-8.0); PROTEIN,URINE NEGATIVE (Neg); UROBILINOGEN,URINE 0.2 E.U/dL (0.2-1.0)
[2021-07-17 22:34] LABS: UA COLLECTION TYPE CLN CATCH MIDSTREAM
[2021-07-17] MEDS ORDERED: normal saline 1000ml 1,000 ML IV ONE (23:20)
[2021-07-17] MEDS ORDERED: metoclopramide 5 mg/ml inj IV ONE (23:20)
[2021-07-17] MEDS ORDERED: METO-292 PO (23:30)
--- NOTE | 2021-07-18 00:33 | NUR ---
patient po challenge
[2021-07-18 01:14] VITALS: BP 110/68
== END 2021-07-18 01:25 | disposition home or self-care (01) ==
LOC: ER 20:48
DX: K52.9 Noninfective gastroenteritis and colitis, unspecified (principal); R11.2 Nausea with vomiting, unspecified; E11.9 Type 2 diabetes mellitus without complications; Z88.0 Allergy status to penicillin; Z88.8 Allergy status to other drugs, medicaments and biological substances; Z79.4 Long term (current) use of insulin; Z79.899 Other long term (current) drug therapy
CPT/HCPCS: 36415; 80053; 81003; 83690; 85025; 96361; 96374; 99284; J2765; J7030

== ENCOUNTER 2021-08-11 13:01 | Emergency (ER) | payer MEDICAID ==
[~2021-08-11] VITALS: Ht 180.3 cm; Wt 72.0 kg
[~2021-08-11 13:01] MED LIST changes: +METO-292 PO
[2021-08-11 14:10] LABS: BASOPHILS % (AUTO) 0.4 % (0-1); EOSINOPHILS # (AUTO) 0.1 X10'3 (0-0.9); EOSINOPHILS % (AUTO) 0.9 % (0-6); HEMATOCRIT 44.8 % (42.0-52.0); LYMPHOCYTES # (AUTO) 1.3 X10'3 (1.1-4.8); MEAN CORPUSCULAR HEMOGLOBIN 27.9 PG (27.0-31.0); MEAN CORPUSCULAR HGB CONC 33.4 g/dL (33.0-36.5); MEAN CORPUSCULAR VOLUME 83.6 FL (78-98); MEAN PLATELET VOLUME 9.3 FL (7.4-10.4); MONOCYTES # (AUTO) 0.4 X10'3 (0-0.9); MONOCYTES % (AUTO) 4.7 % (2-12); NEUTROPHILS # (AUTO) 5.7 X10'3 (1.8-7.7); PLATELET COUNT 238 X10'3 (140-440); RED BLOOD COUNT 5.36 X10'6 (4.70-6.10); RED CELL DISTRIBUTION WIDTH 14.3 % (11.5-14.5); WHITE BLOOD COUNT 7.5 X10'3 (4.5-11.0)
[2021-08-11 14:21] LABS: CLARITY,URINE CLEAR (Clear); COLOR,URINE YELLOW (Yellow); GLUCOSE, URINE 500 mg/dl (Neg); KETONES,URINE 15 mg/dl (Neg); LEUKOCYTE ESTERASE ,URINE NEGATIVE (Neg); NITRITES, URINE NEGATIVE (Neg); OCCULT BLOOD,URINE NEGATIVE (Neg); PROTEIN,URINE NEGATIVE (Neg)
[2021-08-11 14:26] LABS: ALANINE AMINOTRANSFERASE 18 U/L (12-78); ALBUMIN 4.1 G/DL (3.4-5.0); ALBUMIN/GLOBULIN RATIO 1.1 (1.1-1.5); ALKALINE PHOSPHATASE 129 IU/L (46-116); ANION GAP 12 (8-16); ASPARTATE AMINO TRANSFERASE 13 U/L (10-37); BILIRUBIN,TOTAL 0.8 MG/DL (0.1-1.0); BLOOD UREA NITROGEN 12 MG/DL (7-18); BUN/CREATININE RATIO 11.5 (5.4-32.0); CALCIUM 8.9 MG/DL (8.5-10.1); CHLORIDE 102 MMOL/L (99-107); CREATININE 1.04 MG/DL (0.60-1.10); GLUCOSE 153 MG/DL (70-104); POTASSIUM 3.9 MMOL/L (3.5-5.1); SODIUM 141 MMOL/L (135-145); TOTAL PROTEIN 7.8 G/DL (6.4-8.2); eGFR 89 ML/MIN
[2021-08-11 14:28] LABS: UA COLLECTION TYPE CLN CATCH MIDSTREAM
[2021-08-11 14:28] LABS: LIPASE < 50 U/L (73-393)
[2021-08-11 14:47] VITALS: BP 118/71
[2021-08-11] MEDS ORDERED: ondansetron/PF 4mg/2ml inj IV ONE (15:10)
[2021-08-11] MEDS ORDERED: normal saline 1000ml 1,000 ML IV ONE (15:10)
[2021-08-11] MEDS ORDERED: ONDA4TAB12 PO (15:13)
--- NOTE | 2021-08-11 15:36 | NUR ---
given 8 oz of water for po challenge.
--- NOTE | 2021-08-11 16:11 | NUR ---
pt holding down food says he is feeling better
== END 2021-08-11 17:38 | disposition home or self-care (01) ==
LOC: ER 13:02
DX: K52.89 Other specified noninfective gastroenteritis and colitis (principal); E11.9 Type 2 diabetes mellitus without complications; Z88.6 Allergy status to analgesic agent; Z88.0 Allergy status to penicillin; Z79.899 Other long term (current) drug therapy
CPT/HCPCS: 36415; 80053; 81003; 83690; 85025; 96361; 96374; 99283; J2405; J7030

== ENCOUNTER 2021-08-29 15:08 | Emergency (ER) | payer MEDICAID ==
[~2021-08-29] VITALS: Ht 180.3 cm; Wt 80.0 kg
[~2021-08-29 15:08] MED LIST changes: +ONDA4TAB12 PO
[2021-08-29] MEDS ORDERED: levetiracetam inj 1,000 MG in normal saline 100ml IV soln 90 ML IV STA (15:26)
[2021-08-29] MEDS ORDERED: normal saline 1000ML IV soln IVB ONE (15:30)
[2021-08-29] MEDS ORDERED: LORazepam 2 mg/ml vial IV ONE (15:30)
[2021-08-29] MEDS ORDERED: magnesium 2GM in 50ml NS 50 ML IV ONE (15:30)
[2021-08-29] MEDS ORDERED: levetiracetam inj 1,000 MG in normal saline 100ml IV soln 100 ML IV STA (15:41)
[2021-08-29 15:57] LABS: BASOPHILS % (AUTO) 0.4 % (0-1); EOSINOPHILS # (AUTO) 0.3 X10'3 (0-0.9); EOSINOPHILS % (AUTO) 2.9 % (0-6); HEMATOCRIT 43.5 % (42.0-52.0); HEMOGLOBIN 14.7 g/dl (14.0-17.9); LYMPHOCYTES # (AUTO) 2.4 X10'3 (1.1-4.8); LYMPHOCYTES % (AUTO) 28.3 % (21-51); MEAN CORPUSCULAR HEMOGLOBIN 28.6 PG (27.0-31.0); MEAN CORPUSCULAR HGB CONC 33.8 g/dL (33.0-36.5); MEAN CORPUSCULAR VOLUME 84.7 FL (78-98); MEAN PLATELET VOLUME 9.1 FL (7.4-10.4); MONOCYTES # (AUTO) 0.5 X10'3 (0-0.9); NEUTROPHILS # (AUTO) 5.3 X10'3 (1.8-7.7); NEUTROPHILS % (AUTO) 62.4 % (42-75); PLATELET COUNT 278 X10'3 (140-440); RED BLOOD COUNT 5.14 X10'6 (4.70-6.10); RED CELL DISTRIBUTION WIDTH 14.2 % (11.5-14.5); WHITE BLOOD COUNT 8.5 X10'3 (4.5-11.0)
[2021-08-29 16:10] LABS: ALANINE AMINOTRANSFERASE 34 U/L (12-78); ALBUMIN 4.1 G/DL (3.4-5.0); ALBUMIN/GLOBULIN RATIO 1.3 (1.1-1.5); ALKALINE PHOSPHATASE 131 IU/L (46-116); ANION GAP 12 (8-16); ASPARTATE AMINO TRANSFERASE 22 U/L (10-37); BILIRUBIN,TOTAL 0.3 MG/DL (0.1-1.0); BLOOD UREA NITROGEN 10 MG/DL (7-18); BUN/CREATININE RATIO 9.3 (5.4-32.0); CALCIUM 8.6 MG/DL (8.5-10.1); CHLORIDE 106 MMOL/L (99-107); CREATININE 1.07 MG/DL (0.60-1.10); GLUCOSE 95 MG/DL (70-104); POTASSIUM 4.2 MMOL/L (3.5-5.1); SODIUM 142 MMOL/L (135-145); TOTAL CARBON DIOXIDE 23.9 MMOL/L (24-32); TOTAL PROTEIN 7.3 G/DL (6.4-8.2); eGFR 86 ML/MIN
[2021-08-29 16:14] LABS: CREATINE KINASE 153 U/L (39-308); ETHANOL < 0.010 GM/DL (0.0-0.010); MAGNESIUM 2.4 MG/DL (1.5-2.4)
[2021-08-29] MEDS ORDERED: metoclopramide 5 mg/ml inj IV ONE (16:15)
[2021-08-29] MEDS ORDERED: morphine 4 MG/ML inj SYRINge IV ONE (16:30)
[2021-08-29 18:36] VITALS: BP 110/72
[2021-08-29] MEDS ORDERED: KEP500T PO (18:54)
[2021-08-29] MEDS ORDERED: LORA-269 PO (18:54)
== END 2021-08-29 19:21 | disposition home or self-care (01) ==
LOC: ER 15:09
DX: G40.901 Epilepsy, unspecified, not intractable, with status epilepticus (principal); E10.69 Type 1 diabetes mellitus with other specified complication; E72.20 Disorder of urea cycle metabolism, unspecified; E11.9 Type 2 diabetes mellitus without complications; Z88.6 Allergy status to analgesic agent; Z88.0 Allergy status to penicillin; Z79.899 Other long term (current) drug therapy
CPT/HCPCS: 36415; 70450; 71045; 72128; 72131; 80053; 80320; 82140; 82550; 83735; 84484; 85025; 93005; 96361; 96365; 96366; 96368; 96375; 99285; J1953; J2060; J2270; J2765; J3475; J3490; J7030